=== PATIENT | female | born 1955 | race Caucasian/White ===

== ENCOUNTER 2021-01-15 15:34 | Inpatient (IN) | payer MEDICARE, OTHER ==
[~2021-01-15] VITALS: Ht 165.1 cm; Wt 69.2 kg
[~2021-01-15 15:34] MED LIST: AMIT50 PO; CITA20 PO; DEPAKOTE ER250 M2 PO; LORA10ER PO; OXYB5ER PO; RISP1 PO; RIVASTIGMINE PO; XALATAN2.5 ML BOTHEYES
[2021-01-15 17:20] LABS: BASOPHILS ABSOLUTE AUTO 0.03 K/mm3 (0.00-0.23); BASOPHILS PERCENT AUTO 0 % (0-2); EOSINOPHILS ABSOLUTE AUTO 0.03 K/mm3 (0.00-0.68); EOSINOPHILS PERCENT AUTO 0 % (0-6); Hematocrit 40.6 % (33.0-51.0); Hemoglobin 13.3 g/dL (11.5-16.0); IMMATURE GRAN ABSOLUTE AUTO 0.05 K/mm3 (0.00-0.10); IMMATURE GRAN PERCENT AUTO 0 % (0-1); LYMPHOCYTES ABSOLUTE AUTO 0.85 K/mm3 (0.84-5.20); LYMPHOCYTES PERCENT AUTO 5 % (21-46); MONOCYTES ABSOLUTE AUTO 0.89 K/mm3 (0.16-1.47); MONOCYTES PERCENT AUTO 6 % (4-13); Mean Corpuscular HGB 31.7 pg (26.0-34.0); Mean Corpuscular HGB Conc 32.8 g/dL (31.5-36.5); Mean Corpuscular Volume 97 fL (80-100); Mean Platelet Volume 9.9 fL (9.1-12.4); NEUTROPHILS ABSOLUTE AUTO 13.79 K/mm3 (1.96-9.15); NEUTROPHILS PERCENT AUTO 88 % (41-73); Platelet Count 220 K/mm3 (150-400); RDW Coefficient Variation 13.9 % (11.7-14.2); RDW Standard Deviation 49.5 fL (35.1-46.3); Red Blood Cell Count 4.19 M/mm3 (3.80-5.20); White Blood Cell Count 15.64 K/mm3 (4.00-11.30)
[2021-01-15 17:43] LABS: Albumin, Blood 3.6 g/dL (3.4-5.0); Albumin/Globulin Ratio 0.8 (0.8-1.8); Bilirubin, Total 0.4 mg/dL (0.1-1.0); Bun/Creatinine Ratio 11.5 (12.0-20.0); Calcium, Blood 9.6 mg/dL (8.5-10.1); Creatinine, Blood 1.57 mg/dL (0.40-1.00); Globulin, Blood 4.5 g/dL (2.2-4.0); Potassium, Blood 3.9 mmol/L (3.5-5.5); Total Protein, Blood 8.1 g/dL (6.4-8.2); Troponin I 0.113 ng/mL (0.000-0.040)
[2021-01-15 18:38] LABS: International Normalized Ratio 1.17; Prothrombin Time Results 12.2 Sec (9.7-11.5)
[2021-01-15 22:11] LABS: Source, Urine Clean Catch
[2021-01-15 22:15] LABS: Bilirubin, Urine Neg (Neg); Blood, Urine 2+ (Neg); Glucose Qualitative, Urine Neg (Neg); Ketones, Urine 2+ (Neg); Leukocyte Esterase, Urine 3+ (Neg); Nitrite, Urine Pos (Neg); Protein, Urine 2+ (Neg); Specific Gravity, Urine 1.025 (1.003-1.022); Urobilinogen, Urine NORM (Normal)
[2021-01-15 22:22] LABS: Appearance, Urine Hazy (Clear); Bacteria Many /hpf; Color, Urine Yellow (P-Yellow); Red Blood Cells, Urine 0-2 /hpf (0-2); Squamous Epithelial Cells Not Seen /hpf (Few); White Blood Cells, Urine TNTC /hpf (0-5)
[2021-01-15 22:44] LABS: SARS-Cov-2 (COVID-19) PCR, MMC NEGATIVE (NEGATIVE)
[2021-01-16] MEDS ORDERED: TOPI50 PO (02:37)
[2021-01-16] MEDS ORDERED: DOCUZEN 8.6-501 EACH PO (02:38)
[2021-01-16] MEDS ORDERED: CALCIUM 600 +1 EA11 PO (02:42)
--- NOTE | 2021-01-16 03:03 | NUR ---
PATIENT IS A NEW ADMIT FROM THE ED. AXOX 2 TO SELF AND LOCATION. NO DATE, MONTH, OR PRESIDENT. SLOW TO RESPOND. FOUR PERSON TRANSFER FROM [facility] TO BED. ON ROOM AIR. RIGHT SLING PRESENT ON ADMIT FOR ARM/WRIST FXS. DENIES PAIN, SOB, AND N/V. ORTHOSTATIC VITALS TAKEN ONCE PER ORDER: LAYING 112/73 HR: 78 SITTING 108/78 HR: 108 STAND 92/62 HR: 117 TELEMETRY PLACED AND TECH REPORTS SR 73. LR INFUSING AT 100mL/HR. MISSING BILATERAL GREAT TOE NAILS. REPORTS LIVES AT HOME WITH BROTHER AND [id number]. ORTHO CONSULTED IN ED AND CARDIOLOGY TO BE CONSULTED. PATIENT ORIENTED TO ROOM AND CALL LIGHT SYSTEM. BED ALARM ACITVATED. WCTM.
--- NOTE | 2021-01-16 03:28 | NUR ---
CARDIOLOGY CONSULT CALLED INTO DR CHER LEA ([facility]) ANSWERING SERVICE.
[2021-01-16 05:21] LABS: BASOPHILS ABSOLUTE AUTO 0.03 K/mm3 (0.00-0.23); BASOPHILS PERCENT AUTO 0 % (0-2); EOSINOPHILS ABSOLUTE AUTO 0.05 K/mm3 (0.00-0.68); EOSINOPHILS PERCENT AUTO 1 % (0-6); Hematocrit 34.9 % (33.0-51.0); Hemoglobin 11.5 g/dL (11.5-16.0); IMMATURE GRAN ABSOLUTE AUTO 0.01 K/mm3 (0.00-0.10); IMMATURE GRAN PERCENT AUTO 0 % (0-1); LYMPHOCYTES ABSOLUTE AUTO 1.14 K/mm3 (0.84-5.20); LYMPHOCYTES PERCENT AUTO 14 % (21-46); MONOCYTES ABSOLUTE AUTO 0.94 K/mm3 (0.16-1.47); MONOCYTES PERCENT AUTO 12 % (4-13); Mean Corpuscular HGB 31.9 pg (26.0-34.0); Mean Corpuscular Volume 97 fL (80-100); Mean Platelet Volume 10.3 fL (9.1-12.4); NEUTROPHILS ABSOLUTE AUTO 5.74 K/mm3 (1.96-9.15); NEUTROPHILS PERCENT AUTO 73 % (41-73); Platelet Count 162 K/mm3 (150-400); RDW Coefficient Variation 13.7 % (11.7-14.2); RDW Standard Deviation 49.1 fL (35.1-46.3); Red Blood Cell Count 3.61 M/mm3 (3.80-5.20); White Blood Cell Count 7.91 K/mm3 (4.00-11.30)
[2021-01-16 05:48] LABS: Bun/Creatinine Ratio 14.5 (12.0-20.0); Calcium, Blood 9.3 mg/dL (8.5-10.1); Creatinine, Blood 1.31 mg/dL (0.40-1.00); Potassium, Blood 3.4 mmol/L (3.5-5.5)
--- NOTE | 2021-01-16 06:45 | NUR ---
LAB CALLED ELEVATED TROPONIN: 1.960 UP FROM 1.[address] POWELL NOTIFIED AND REPORTS TO CONTINUE TO MONITOR. STRAP FOLDING MACHINE OPERATOR CONSULT FOR ELEVATED TROPONINS ALREADY CALLED IN FOR TODAY.
--- NOTE | 2021-01-16 15:06 | NUR ---
LEFT FOR UNHAIRING MACHINE OPERATOR AROUND 1430. SISTER-IN LAW, TOMY MCCALL, WITH HER. PATIENT DEVELOPMENTALLY DELAYED AND PER ABNER TRUONG OK FOR HER TO BE HER. PER ZOE LANG FOR TOMY TO WAIT IN WAITING ROOM FOR F/U AFTER PROCEDURE. SONIA TOOK ALL OF PATIENT CLOTHES TO BE WASHED.
--- NOTE | 2021-01-16 15:59 | NUR ---
REPORT TO JACLYN EL IN PCU.ANSWER ALL QUESTIONS.
--- NOTE | 2021-01-16 16:49 | NUR ---
Echocardiogram attempted, however there were no avaialablke images secondary to lung interference and extreeme abdominal excities.
--- NOTE | 2021-01-16 18:12 | NUR ---
SHIFT SUMMARY PT BROUGHT TO PCU-10 BY PCU BED FROM [facility] @ 5855. PT A&O TO SELF, LOCATION, & ABLE TO RELAY EVENT LEADING UP TO HOSPITALIZATION. PT REPORTS "I GOT DIZZY AND FELL." PT BEDREST POST ANGIO. VSS. SPO2 > 92% ON RA. MONITOR SHOWS SR, HR 70's. ABD FIRM & SEVERELY DISTENDED W/ NORMOACTIVE BT's. R GROIN ACCESS SITE WNL, DRESSING C/D/I, NO BLEEDING, NO HEMATOMA. R ARM IN SLING W/ BRUISING T/O R UPPER ARM. PT C/O R SHOULDER PAIN, UNABLE TO PROVIDE PAIN LEVEL OR PAIN DESCRIPTION, BUT FURTHER STATING "MY SHOULDER HURTS REAL BAD." PT MEDICATED W/ PRN IV FENTANYL PER EMAR. LR GTT INFUSING PER ORDERS. WILL CONTINUE TO MONITOR & PROVIDE CARE UNTIL REPORT OFF TO DAY SHIFT RN.
--- NOTE | 2021-01-17 01:51 | NUR ---
PATIENT BEGAN HAVING "20/10" PAIN IN FRACTURED R HUMERUS AND WRIST. MEDICATED WITH PRN TYLENOL WITH NO RELIEF. CONTACTED DOCTOR AND CHANGED Q4P TO Q2P. PATIENT REPORTS RELIEF AND WAS ABLE TO SLEEP.
[2021-01-17 04:14] LABS: BASOPHILS ABSOLUTE AUTO 0.03 K/mm3 (0.00-0.23); BASOPHILS PERCENT AUTO 0 % (0-2); EOSINOPHILS ABSOLUTE AUTO 0.02 K/mm3 (0.00-0.68); EOSINOPHILS PERCENT AUTO 0 % (0-6); Hematocrit 32.1 % (33.0-51.0); Hemoglobin 10.4 g/dL (11.5-16.0); IMMATURE GRAN ABSOLUTE AUTO 0.01 K/mm3 (0.00-0.10); IMMATURE GRAN PERCENT AUTO 0 % (0-1); LYMPHOCYTES ABSOLUTE AUTO 1.19 K/mm3 (0.84-5.20); LYMPHOCYTES PERCENT AUTO 17 % (21-46); MONOCYTES ABSOLUTE AUTO 0.89 K/mm3 (0.16-1.47); MONOCYTES PERCENT AUTO 13 % (4-13); Mean Corpuscular HGB Conc 32.4 g/dL (31.5-36.5); Mean Corpuscular Volume 96 fL (80-100); Mean Platelet Volume 10.1 fL (9.1-12.4); NEUTROPHILS ABSOLUTE AUTO 4.86 K/mm3 (1.96-9.15); NEUTROPHILS PERCENT AUTO 70 % (41-73); Platelet Count 167 K/mm3 (150-400); RDW Coefficient Variation 13.7 % (11.7-14.2); RDW Standard Deviation 48.4 fL (35.1-46.3); Red Blood Cell Count 3.35 M/mm3 (3.80-5.20)
--- NOTE | 2021-01-17 04:16 | NUR ---
PATIENT IS A/OX2 (SELF, PLACE). PLEASANT AND COOPERATIVE, ABLE TO ANSWER QUESTIONS AND STATE HER NEEDS BUT ONLY WHEN PROMPTED. R ARM AND WRIST PAIN, CAP REFILL LESS THAN 3 IN AFFECTED ARM WITH FULL SENSATION. LS CLEAR T/O AND ABOVE 90% ON RA. NSR TO ST, FAINT +1 BLE PULSES. ABDOMEN IS VERY FIRM AND DISTENDED. PATIENT REPORTS NO PAIN IN THE ABDOMEN, BUT UNABLE TO PASS FLATUS BUT BELCHES SOME. BRUISING IN AFFECTED SHOULDER. GROIN SITE C/D/I WITH NO BLEED/HEMATOMA. PATIENT DID HAVE TO BE MEDICATED TWICE DURING THE NIGHT FOR PAIN WITH PRN FENTANYL WHICH BRINGS HER RELIEF. WILL REPORT TO ONCOMING DAYSHIFT RN.
[2021-01-17 04:28] LABS: Albumin, Blood 2.9 g/dL (3.4-5.0); Anion Gap 6 mmol/L (6-16); Blood Urea Nitrogen 14 mg/dL (8-24); Bun/Creatinine Ratio 13.9 (12.0-20.0); CO2, Blood 24 mmol/L (21-32); Calcium, Blood 8.7 mg/dL (8.5-10.1); Chloride, Blood 109 mmol/L (98-108); Creatinine, Blood 1.01 mg/dL (0.40-1.00); Glomerular Filtration Rate 55 (60-); Glucose, Blood 106 mg/dL (70-99); Phosphorus, Blood 2.4 mg/dL (2.5-4.9); Potassium, Blood 3.6 mmol/L (3.5-5.5); Sodium, Blood 139 mmol/L (136-145)
[2021-01-17 08:57] LABS: CHOL/HDL RATIO 2.9; Cholesterol 174 mg/dL (50-200); HDL Cholesterol 59 mg/dL (>39); LDL/HDL RATIO 1.7; Low Density Lipoprotein Chol 99 mg/dL (0-110); Triglycerides 81 mg/dL (30-160); Very Low Density Lipoprot Chol 16 mg/dL (6-32)
--- NOTE | 2021-01-17 19:20 | NUR ---
SHIFT SUMMARY PT A&O TO SELF, LOCATION, FAMILY, & FOLLOWING INSTRUCTIONS. PT VSS. SPO2 > 92% ON RA. MONITOR SHOWING NSR. PT R ARM REMAINS IN SPLINT & SLING. PT C/O R "SHOULDER" PAIN INTERMITTENTLY T/O SHIFT, MEDICATED W/ PRN MEDICATION PER EMAR W/ RELIEF. PT ABD FIRM & SEVERELY DISTENDED W/ PT [id number] REPORT OF PT NOT HAVING BM SINCE BEGINNING OF THE MONTH. MD PERDUE TO PT BEDSIDE, MASSAGING MUSCLES ALONG PT's SPINE & PT's ABD TO PROMOTE BOWEL MOVEMENT. PT THEN W/ LARGE, LOOSE, RENE BOWEL MOVEMENT WITHIN HALF HOUR OF MD CARE.
[2021-01-18 04:00] LABS: BASOPHILS ABSOLUTE AUTO 0.04 K/mm3 (0.00-0.23); BASOPHILS PERCENT AUTO 0 % (0-2); EOSINOPHILS ABSOLUTE AUTO 0.08 K/mm3 (0.00-0.68); EOSINOPHILS PERCENT AUTO 1 % (0-6); Hematocrit 30.5 % (33.0-51.0); Hemoglobin 10.2 g/dL (11.5-16.0); IMMATURE GRAN ABSOLUTE AUTO 0.04 K/mm3 (0.00-0.10); IMMATURE GRAN PERCENT AUTO 0 % (0-1); LYMPHOCYTES ABSOLUTE AUTO 1.31 K/mm3 (0.84-5.20); LYMPHOCYTES PERCENT AUTO 11 % (21-46); MONOCYTES ABSOLUTE AUTO 1.02 K/mm3 (0.16-1.47); MONOCYTES PERCENT AUTO 9 % (4-13); Mean Corpuscular HGB 32.4 pg (26.0-34.0); Mean Corpuscular HGB Conc 33.4 g/dL (31.5-36.5); Mean Corpuscular Volume 97 fL (80-100); Mean Platelet Volume 10.4 fL (9.1-12.4); NEUTROPHILS ABSOLUTE AUTO 8.99 K/mm3 (1.96-9.15); NEUTROPHILS PERCENT AUTO 78 % (41-73); Platelet Count 172 K/mm3 (150-400); RDW Coefficient Variation 13.7 % (11.7-14.2); RDW Standard Deviation 48.7 fL (35.1-46.3); Red Blood Cell Count 3.15 M/mm3 (3.80-5.20); White Blood Cell Count 11.48 K/mm3 (4.00-11.30)
[2021-01-18 04:21] LABS: Albumin, Blood 2.9 g/dL (3.4-5.0); Albumin/Globulin Ratio 0.7 (0.8-1.8); Bilirubin, Total 0.3 mg/dL (0.1-1.0); Bun/Creatinine Ratio 21.2 (12.0-20.0); Calcium, Blood 8.6 mg/dL (8.5-10.1); Creatinine, Blood 0.99 mg/dL (0.40-1.00); Globulin, Blood 4.1 g/dL (2.2-4.0); Potassium, Blood 3.5 mmol/L (3.5-5.5)
--- NOTE | 2021-01-18 06:18 | NUR ---
SHIFT SUMMARY PT A+OX2. RESPONSIVE TO CARE. RESPONDS WITH SHORT AND SIMPLE ANSWERS. C/O OF SEVERE 10/10 PAIN IN RIGHT ARM AND HEADACHE. MANAGED PER EMAR. PAIN INCREASED DURING POSITION CHANGES. VSS. SATS RA 96%. TELE READS SR 80'S. TRANSFERRED TO CHAIR PER REQUEST AROUND 0400. LEFT IN CHAIR SLEEPING WITH CALL ALARM AT SIDE. WILL CONTINUE TO MONITOR UNTIL REPORT GIVEN
--- NOTE | 2021-01-18 07:45 | NUR ---
CARE ASSUMPTION PATIENT A/OX4. VSS. SPO2 >90% ON RA. TELE SR. PATIENT IS SITTING IN CHAIR AT BEDSIDE. PATIENT REPORTS PAIN IN RIGHT ARM, RECEIVED PAIN MEDICATION PER EMAR, AND PATIENT STATED THIS HELPED WITH THE PAIN. CALL LIGHT WITHIN REACH. WILL CONTINUE TO MONITOR AND PROVIDE CARE.
--- NOTE | 2021-01-18 11:34 | NUR ---
REPORT TO MED RN THIS RN GGAVE REPORT TO MED RN. PATIENT BELONGINGS GATHERED AND TAKEN UP WITH HER TO THE FLOOR.
--- NOTE | 2021-01-18 11:42 | NUR ---
TRANSPORT PATIENT WENT TO MEDICAL VIA WHEELCHAIR WITH ALL BELONGINGS.
--- NOTE | 2021-01-18 18:08 | NUR ---
PT PLEASANT SINCE TRANSFER TO FLOOR FROM PCU. DISCUSSED RESTARTING MENTAL HEALTH MEDS TOMORROW WITH DR BAGLEY. PT HAS TRANSFERRED TO CHAIR AND BSC WITH MINIMAL ASSIST. XRAYS TAKEN TODAY OF ARM AND REFERRAL TO DR WALTON FOR POSS SURG TOMORROW IF NEEDS. NPO AFTER MIDNITE JUST IN CASE. DR TO SEE PT TOMORROW AND DECIDE. NO OTHER CONCERNS NOTED TODAY. BED IN LOW POSITION, CALL LITE IN REACH, CALLS APPROP
--- NOTE | 2021-01-19 05:49 | NUR ---
PATIENT IS ASLEEP SITTING IN RECLINER CHAIR. PAIN HAS BEEN MANAGED PER MAR THROUGHOUT THE SHIFT, PATIENT HAS PROGRESSED WITH MAKING NEEDS KNOWN. R ARM IS IN SLING AND NO EVIDENCE OF PAIN AT THIS TIME. CALL LIGHT WITHIN REACH.
[2021-01-19 07:39] LABS: BASOPHILS ABSOLUTE AUTO 0.06 K/mm3 (0.00-0.23); BASOPHILS PERCENT AUTO 1 % (0-2); EOSINOPHILS ABSOLUTE AUTO 0.23 K/mm3 (0.00-0.68); EOSINOPHILS PERCENT AUTO 3 % (0-6); Hematocrit 29.3 % (33.0-51.0); Hemoglobin 9.6 g/dL (11.5-16.0); IMMATURE GRAN ABSOLUTE AUTO 0.03 K/mm3 (0.00-0.10); IMMATURE GRAN PERCENT AUTO 0 % (0-1); LYMPHOCYTES ABSOLUTE AUTO 1.77 K/mm3 (0.84-5.20); LYMPHOCYTES PERCENT AUTO 22 % (21-46); MONOCYTES ABSOLUTE AUTO 0.82 K/mm3 (0.16-1.47); MONOCYTES PERCENT AUTO 10 % (4-13); Mean Corpuscular HGB 31.7 pg (26.0-34.0); Mean Corpuscular HGB Conc 32.8 g/dL (31.5-36.5); Mean Corpuscular Volume 97 fL (80-100); Mean Platelet Volume 10.3 fL (9.1-12.4); NEUTROPHILS ABSOLUTE AUTO 5.12 K/mm3 (1.96-9.15); NEUTROPHILS PERCENT AUTO 64 % (41-73); Platelet Count 162 K/mm3 (150-400); RDW Coefficient Variation 13.8 % (11.7-14.2); RDW Standard Deviation 48.7 fL (35.1-46.3); Red Blood Cell Count 3.03 M/mm3 (3.80-5.20); White Blood Cell Count 8.03 K/mm3 (4.00-11.30)
[2021-01-19 08:00] LABS: Alanine Aminotransfer (ALT/SGP 23 U/L (12-78); Albumin, Blood 2.9 g/dL (3.4-5.0); Albumin/Globulin Ratio 0.7 (0.8-1.8); Alk Phos 32 U/L (50-136); Anion Gap 5 mmol/L (6-16); Aspartate Aminotrans (AST/SGOT 51 U/L (12-37); Bilirubin, Total 0.4 mg/dL (0.1-1.0); Blood Urea Nitrogen 14 mg/dL (8-24); Bun/Creatinine Ratio 16.5 (12.0-20.0); CO2, Blood 25 mmol/L (21-32); Calcium, Blood 8.6 mg/dL (8.5-10.1); Chloride, Blood 110 mmol/L (98-108); Creatinine, Blood 0.85 mg/dL (0.40-1.00); Glomerular Filtration Rate >60 (60-); Glucose, Blood 101 mg/dL (70-99); Potassium, Blood 3.2 mmol/L (3.5-5.5); Sodium, Blood 140 mmol/L (136-145); Total Protein, Blood 6.9 g/dL (6.4-8.2)
--- NOTE | 2021-01-19 16:48 | NUR ---
SHIFT SUMMARY: PT A/O TO SELF AND SITUATION. PAIN MANAGED WITH CURRENT REGIMEN AND TOLERATING PO PAIN MEDICATIONS WELL. PT UP TO BSC WITH ONE PERSON ASSIST. SHE IS STEADY ON FEET BUT NEEDS HELP WITH GETTING IN AND OUT OF BED DUE TO FRACTURED RIGHT ARM/SHOULDER. PT UNDERSTANDS TX PLAN. NO ACUTE CHANGES THIS SHIFT.
--- NOTE | 2021-01-20 04:07 | NUR ---
SUMMARY PT CONTINUES TO C/O RIGHT ARM PAIN. PT TX PER EMAR. PT REQUIRED IV FENTANYL FOR BREAKTHROUGH PAIN. PT HAS BEEN SLEEPING WELL. PT HAS BEEN VOIDING WELL AND PASSING GAS. PT CURRENTLY SLEEPING IN NO DISTRESS. CALL LIGHT IN REACH. BED ALARM ON.
[2021-01-20 04:52] LABS: BASOPHILS ABSOLUTE AUTO 0.04 K/mm3 (0.00-0.23); BASOPHILS PERCENT AUTO 1 % (0-2); EOSINOPHILS PERCENT AUTO 3 % (0-6); Hematocrit 25.9 % (33.0-51.0); Hemoglobin 8.3 g/dL (11.5-16.0); IMMATURE GRAN ABSOLUTE AUTO 0.02 K/mm3 (0.00-0.10); IMMATURE GRAN PERCENT AUTO 0 % (0-1); LYMPHOCYTES PERCENT AUTO 22 % (21-46); MONOCYTES ABSOLUTE AUTO 0.55 K/mm3 (0.16-1.47); MONOCYTES PERCENT AUTO 10 % (4-13); Mean Corpuscular Volume 100 fL (80-100); Mean Platelet Volume 10.3 fL (9.1-12.4); NEUTROPHILS ABSOLUTE AUTO 3.71 K/mm3 (1.96-9.15); NEUTROPHILS PERCENT AUTO 64 % (41-73); Platelet Count 152 K/mm3 (150-400); RDW Coefficient Variation 13.9 % (11.7-14.2); RDW Standard Deviation 49.7 fL (35.1-46.3); Red Blood Cell Count 2.59 M/mm3 (3.80-5.20); White Blood Cell Count 5.82 K/mm3 (4.00-11.30)
[2021-01-20 05:16] LABS: Alanine Aminotransfer (ALT/SGP 19 U/L (12-78); Albumin, Blood 2.3 g/dL (3.4-5.0); Albumin/Globulin Ratio 0.7 (0.8-1.8); Alk Phos 28 U/L (50-136); Anion Gap 6 mmol/L (6-16); Aspartate Aminotrans (AST/SGOT 40 U/L (12-37); Bilirubin, Total 0.4 mg/dL (0.1-1.0); Blood Urea Nitrogen 13 mg/dL (8-24); Bun/Creatinine Ratio 14.3 (12.0-20.0); CO2, Blood 23 mmol/L (21-32); Calcium, Blood 8.1 mg/dL (8.5-10.1); Chloride, Blood 115 mmol/L (98-108); Creatinine, Blood 0.91 mg/dL (0.40-1.00); Globulin, Blood 3.2 g/dL (2.2-4.0); Glomerular Filtration Rate >60 (60-); Glucose, Blood 88 mg/dL (70-99); Potassium, Blood 3.1 mmol/L (3.5-5.5); Sodium, Blood 144 mmol/L (136-145); Total Protein, Blood 5.5 g/dL (6.4-8.2)
--- NOTE | 2021-01-20 19:44 | NUR ---
SHIFT SUMMARY: PT A/O TO SELF AND AND SITUATION. ONE PERSON ASSIST TO CHAIR, BSC. PT TOLERATING PO MEDICATIONS. REPORTS PAIN TO RA. PT ABLE TO WIGGLE FINGERS AND REPORTS FEELING IN FINGERS. PT IS EATING WELL AND DRINKING FLUIDS WELL. PRUNE JUICE COCKTAIL GIVEN TODAY FOR NO BM IN 2 DAYS. REPORTED TO ONCOMING RN REGARDING LOW HGB AND TO MONITOR FOR S/S OF BLEEDING. NO OTHER ACUTE CONCERNS.
--- NOTE | 2021-01-21 05:23 | NUR ---
PT with fall & rt humerous fracture continues to require oral pain meds Percocet 5/32 mg x 2 this shift & motrin 800 mg x 1 for CO headache. PT does not use call lakhani whimpering heard & when asked PT says she needs to use BSC. Heni walker due to rt UE immobilized. Elevate RT arm above heart level to decrease edema. Fall precautions. SNF placement for rehab.
[2021-01-21 06:47] LABS: BASOPHILS ABSOLUTE AUTO 0.03 K/mm3 (0.00-0.23); BASOPHILS PERCENT AUTO 1 % (0-2); EOSINOPHILS ABSOLUTE AUTO 0.16 K/mm3 (0.00-0.68); EOSINOPHILS PERCENT AUTO 3 % (0-6); Hematocrit 26.2 % (33.0-51.0); Hemoglobin 8.6 g/dL (11.5-16.0); IMMATURE GRAN ABSOLUTE AUTO 0.01 K/mm3 (0.00-0.10); IMMATURE GRAN PERCENT AUTO 0 % (0-1); LYMPHOCYTES ABSOLUTE AUTO 1.05 K/mm3 (0.84-5.20); LYMPHOCYTES PERCENT AUTO 16 % (21-46); MONOCYTES ABSOLUTE AUTO 0.56 K/mm3 (0.16-1.47); MONOCYTES PERCENT AUTO 9 % (4-13); Mean Corpuscular HGB 32.1 pg (26.0-34.0); Mean Corpuscular HGB Conc 32.8 g/dL (31.5-36.5); Mean Corpuscular Volume 98 fL (80-100); Mean Platelet Volume 9.9 fL (9.1-12.4); NEUTROPHILS PERCENT AUTO 72 % (41-73); Platelet Count 178 K/mm3 (150-400); RDW Coefficient Variation 14.2 % (11.7-14.2); RDW Standard Deviation 49.9 fL (35.1-46.3); Red Blood Cell Count 2.68 M/mm3 (3.80-5.20); White Blood Cell Count 6.41 K/mm3 (4.00-11.30)
[2021-01-21 10:16] LABS: Anion Gap 5 mmol/L (6-16); Blood Urea Nitrogen 13 mg/dL (8-24); Bun/Creatinine Ratio 14.6 (12.0-20.0); CO2, Blood 22 mmol/L (21-32); Calcium, Blood 8.2 mg/dL (8.5-10.1); Chloride, Blood 116 mmol/L (98-108); Creatinine, Blood 0.89 mg/dL (0.40-1.00); Glomerular Filtration Rate >60 (60-); Glucose, Blood 130 mg/dL (70-99); Potassium, Blood 3.2 mmol/L (3.5-5.5); Sodium, Blood 143 mmol/L (136-145)
--- NOTE | 2021-01-21 18:36 | NUR ---
SHIFT SUMMARY: NO ACUTE EVENTS. DENIES PAIN UNLESS RUE IS MOVED; MEDICATED WITH PERCOCET X 1, WHICH MADE PT SEDATED ENOUGH THAT SHE COULD NOT STAY AWAKE FOR LUNCH. SISTER IN LAW VISITED AT DINNERTIME, SO PT AWAKE AND APPROPRIATE AT THAT TIME. WORKED WITH PT/OT LATE THIS AFTERNOON. UP TO BSC WITH 1 PERSON ASSISTANCE. RUE IS ENCASED IN SPLINT/COMPRESSION DRESSING, ARM IN SLING. CAN MOVE FINGERS, CAP REFILL < 3 SEC; EXTREMITY IS SEVERELY BRUISED FROM SHOULDER TO FINGERS, ELEVATED ABOVE HEART TO REDUCE SWELLING. SISTER IN LAW VOICED CONCERN ABOUT TAKING CARE OF PT AT HOME (HER 81 YEAR OLD IS ALSO RECOVERING FROM ARM FRACTURE AND SHE IS CARING FOR HIM). SNF VS HOME WITH HH.
--- NOTE | 2021-01-22 06:47 | NUR ---
PT much more sedate on 1 percocet 5/325 mg tab Q 4 hrs with minimum oral intake. Fed snack with meds. not OOB this shift. RT arm hand casted with decreased edema with elevation. DC planning for SNF?
[2021-01-22 10:48] LABS: SARS-Cov-2 (COVID-19) PCR, MMC NEGATIVE (NEGATIVE)
[2021-01-22] MEDS ORDERED: ATOR10 PO (13:46)
[2021-01-22] MEDS ORDERED: METO25 PO (13:46)
[2021-01-22] MEDS ORDERED: TRAM50 PO (13:46)
[2021-01-22] MEDS ORDERED: ACET325 PO (13:46)
--- NOTE | 2021-01-22 16:14 | NUR ---
TELEPHONE REPORT GIVEN TO BRANDON AT [facility]. PT TO BE D/C'D AT ~ 1630.
--- NOTE | 2021-01-22 16:56 | NUR ---
PATIENT DISCHARGED TO [facility] VIA W/C. IV SALINE LOCK REMOVED WITHOUT INCIDENT. TRANSFERRED TO W/C WITH 1 PERSON ASSIST. OFF UNIT AT 1657. NO PERSONAL BELONGINGS LEFT BEHIND IN ROOM.
== END 2021-01-22 17:00 | DRG 872 ==
LOC: ER 15:34 → MEDS 21:54 → PCU 01-16 15:41 → MEDS 01-18 11:51
PROVIDERS: Hospitalist; Physician Assistant; Student in an Organized Health Care Education/Training Program; ADMIT Family Medicine
PROC: 0PSHXZZ Reposition Right Radius, External Approach (ICD-10-PCS; principal; 2021-01-15)
PROC: 0PSCXZZ Reposition Right Humeral Head, External Approach (ICD-10-PCS; 2021-01-15)
PROC: 4A023N7 Measurement of Cardiac Sampling and Pressure, Left Heart, Percutaneous Approach (ICD-10-PCS; 2021-01-16)
PROC: B2111ZZ Fluoroscopy of Multiple Coronary Arteries using Low Osmolar Contrast (ICD-10-PCS; 2021-01-16)
DX: A41.51 Sepsis due to Escherichia coli [E. coli] (principal); S42.291A Other displaced fracture of upper end of right humerus, initial encounter for closed fracture; S52.531A Colles' fracture of right radius, initial encounter for closed fracture; N17.9 Acute kidney failure, unspecified; N39.0 Urinary tract infection, site not specified; I24.8 Other forms of acute ischemic heart disease; K56.0 Paralytic ileus; E87.2 Acidosis; K59.09 Other constipation; R65.20 Severe sepsis without septic shock; Z20.822 Contact with and (suspected) exposure to COVID-19; T44.1X5A Adverse effect of other parasympathomimetics [cholinergics], initial encounter; R62.50 Unspecified lack of expected normal physiological development in childhood; E87.6 Hypokalemia; W18.30XA Fall on same level, unspecified, initial encounter; Z88.5 Allergy status to narcotic agent; Z88.6 Allergy status to analgesic agent; Z88.8 Allergy status to other drugs, medicaments and biological substances; Z79.899 Other long term (current) drug therapy
CPT/HCPCS: 25605; 36415; 71045; 73030; 73060; 73100; 73110; 74176; 80048; 80053; 80061; 80069; 81001; 82550; 82947; 83605; 83735; 84132; 84145; 84484; 85025; 85610; 85730; 87040; 87077; 87086; 87186; 93005; 93010; 93306; 93458; 96365-59; 96375-59; 96376-59; 97110; 97116; 97162; 97166; 97530; 97535; 99152; 99153; 99285-25; A9270; C1760; C1769; C1894; J0696; J1170; J1644; J2250; J2543; J3010; J3370; J3480; J7030; J7050; J7120; P9612; Q9967; U0004

== ENCOUNTER → 2021-01-27 | Outpatient (CLI) | payer MEDICARE, OTHER ==
[~2021-01-27] MED LIST changes: +ACET325 PO; +ATOR10 PO; +CALCIUM 600 +1 EA11 PO; +DOCUZEN 8.6-501 EACH PO; +METO25 PO; +TOPI50 PO; +TRAM50 PO
[2021-01-27 18:26] LABS: Hematocrit 28.8 % (33.0-51.0); Hemoglobin 9.2 g/dL (11.5-16.0); Mean Corpuscular HGB 31.6 pg (26.0-34.0); Mean Corpuscular HGB Conc 31.9 g/dL (31.5-36.5); Mean Corpuscular Volume 99 fL (80-100); Mean Platelet Volume 9.7 fL (9.1-12.4); Platelet Count 203 K/mm3 (150-400); RDW Coefficient Variation 15.2 % (11.7-14.2); RDW Standard Deviation 53.9 fL (35.1-46.3); Red Blood Cell Count 2.91 M/mm3 (3.80-5.20); White Blood Cell Count 6.06 K/mm3 (4.00-11.30)
[2021-01-27 18:33] LABS: Anion Gap 7 mmol/L (6-16); Blood Urea Nitrogen 25 mg/dL (8-24); Bun/Creatinine Ratio 27.4 (12.0-20.0); CO2, Blood 23 mmol/L (21-32); Calcium, Blood 8.8 mg/dL (8.5-10.1); Chloride, Blood 109 mmol/L (98-108); Creatinine, Blood 0.91 mg/dL (0.40-1.00); Glomerular Filtration Rate >60 (60-); Glucose, Blood 103 mg/dL (70-99); Potassium, Blood 3.5 mmol/L (3.5-5.5); Sodium, Blood 139 mmol/L (136-145)
== END | disposition home or self-care (01) ==
LOC: EDSTATUS 10:29 → LAB RH 16:23
PROVIDERS: Internal Medicine
DX: R68.89 Other general symptoms and signs (principal); R79.89 Other specified abnormal findings of blood chemistry
CPT/HCPCS: 80048; 85027

== ENCOUNTER → 2021-04-21 | Outpatient (CLI) | payer MEDICARE, OTHER | END | disposition home or self-care (01) | LOC: LAB SHORT 14:56 | DX: R35.0 Frequency of micturition (principal) | CPT/HCPCS: 87077; 87086; 87186 ==

== ENCOUNTER → 2021-05-16 | Outpatient (CLI) | payer MEDICARE, OTHER | LOC: LAB 19:09 → LAB SHORT 19:09 | DX: R30.0 Dysuria (principal) | CPT/HCPCS: 87077; 87086; 87186 ==

== ENCOUNTER → 2021-10-19 | Outpatient (CLI) | payer MEDICARE, OTHER | END | disposition home or self-care (01) | LOC: LAB SHORT 10:45 → LAB 10:45 | DX: N39.0 Urinary tract infection, site not specified (principal) | CPT/HCPCS: 87077; 87086; 87186 ==

== ENCOUNTER 2022-04-23 07:28 | Emergency (ER) | payer OTHER, MEDICARE ==
[~2022-04-23] VITALS: Ht 165.1 cm; Wt 72.6 kg
== END 2022-04-23 11:48 | disposition home or self-care (01) ==
LOC: ER 07:28
DX: S00.83XA Contusion of other part of head, initial encounter (principal); M54.50 Low back pain, unspecified; W01.0XXA Fall on same level from slipping, tripping and stumbling without subsequent striking against object, initial encounter; Z88.8 Allergy status to other drugs, medicaments and biological substances; Z88.5 Allergy status to narcotic agent; Z88.6 Allergy status to analgesic agent; Z79.899 Other long term (current) drug therapy
CPT/HCPCS: 70450; 72125; 74176; A9270

== ENCOUNTER 2022-08-30 11:02 | Inpatient (IN) | payer OTHER, MEDICARE ==
[~2022-08-30] VITALS: Ht 165.1 cm; Wt 81.7 kg
[2022-08-30 11:52] LABS: BASOPHILS ABSOLUTE AUTO 0.04 K/mm3 (0.00-0.23); BASOPHILS PERCENT AUTO 1 % (0-2); EOSINOPHILS ABSOLUTE AUTO 0.14 K/mm3 (0.00-0.68); EOSINOPHILS PERCENT AUTO 3 % (0-6); Hematocrit 33.3 % (33.0-51.0); Hemoglobin 10.9 g/dL (11.5-16.0); IMMATURE GRAN ABSOLUTE AUTO 0.02 K/mm3 (0.00-0.10); IMMATURE GRAN PERCENT AUTO 1 % (0-1); LYMPHOCYTES ABSOLUTE AUTO 0.85 K/mm3 (0.84-5.20); LYMPHOCYTES PERCENT AUTO 20 % (21-46); MONOCYTES ABSOLUTE AUTO 0.35 K/mm3 (0.16-1.47); MONOCYTES PERCENT AUTO 8 % (4-13); Mean Corpuscular HGB 31.6 pg (26.0-34.0); Mean Corpuscular HGB Conc 32.7 g/dL (31.5-36.5); Mean Corpuscular Volume 97 fL (80-100); Mean Platelet Volume 9.8 fL (9.1-12.4); NEUTROPHILS ABSOLUTE AUTO 2.96 K/mm3 (1.96-9.15); NEUTROPHILS PERCENT AUTO 68 % (41-73); Platelet Count 145 K/mm3 (150-400); RDW Coefficient Variation 13.8 % (11.7-14.2); Red Blood Cell Count 3.45 M/mm3 (3.80-5.20); White Blood Cell Count 4.36 K/mm3 (4.00-11.30)
[2022-08-30 12:08] LABS: Albumin, Blood 2.9 g/dL (3.4-5.0); Albumin/Globulin Ratio 0.9 (0.8-1.8); Bilirubin, Total 0.3 mg/dL (0.1-1.0); Bun/Creatinine Ratio 16.8 (12.0-20.0); Calcium, Blood 8.8 mg/dL (8.5-10.1); Creatinine, Blood 1.25 mg/dL (0.40-1.00); Globulin, Blood 3.3 g/dL (2.2-4.0); Magnesium, Blood 1.9 mg/dL (1.6-2.4); Potassium, Blood 3.9 mmol/L (3.5-5.5); Thyroid Stimulating Hormone 3.05 uIU/mL (0.360-4.800); Total Protein, Blood 6.2 g/dL (6.4-8.2)
--- NOTE | 2022-08-30 15:30 | NUR ---
ARRIVAL TO UNIT PT TRANSPORTED FROM ER VIA GURNEY. TRANSFERRED OVER TO BED WITH SLIDE SHEET. COMPLAINS ON PAIN WHEN MOVING BUT HAS NO PAIN WHEN LYING IN BED. PT ABLE TO RESPOND TO YES NO QUESTIONS, DOESNT GIVE MORE DETAIL. EXPLAINED TO PT WHAT THE CALL LIGHT WHAT AND HOW TO USE IT IF SHE NEEDED SOMETHING. B/P IN THE 70'S OVER 60'S. PT STABLE AND WANTING TO SLEEP. WILL CONTINUE TO MONITOR BP.
[2022-08-30 16:37] VITALS: BP 80/58
--- NOTE | 2022-08-30 17:00 | NUR ---
POA CONTACT INFO LEORA DICKSON WILL COME IN WITH MEDICATION LIST LATER AURE
--- NOTE | 2022-08-30 17:43 | NUR ---
SHIFT SUMMARY PT ABLE TO LET THE STAFF KNOW WHEN SHE HAS TO USE THE BATHROOM. PT USES BEDPAN, ABLE TO LIFT UP ONE HIP TO GET THE BEDPAN UNDER. ONLY COMPLAINS OF PAIN WHEN MOVED. B/P STILL LOW BUT THIS IS NORMAL FOR PT. EATING DINNER NOW, WILL BE NPO @ MIDNIGHT FOR POSSIBLE SURGERY TOMORROW. POA WILL BE IN TONIGHT WITH MEDICATION LIST. NO QUESTIONS AT THIS TIME.
[2022-08-30] MEDS ORDERED: NAPR500 PO (19:44)
[2022-08-30] MEDS ORDERED: MIRALAX17 GM PO (19:45)
[2022-08-30] MEDS ORDERED: SUMA25 PO (19:46)
[2022-08-30] MEDS ORDERED: AMIT50 PO (19:47)
[2022-08-30 19:50] VITALS: BP 102/80
[2022-08-31] VITALS (22 sets, daily range): BP systolic 76–111; BP diastolic 51–99
--- NOTE | 2022-08-31 04:03 | NUR ---
PHYSICIAN COMMUNICATION ROUGHLY AROUND [address] LIVINGSTON OF LOW BP. 79/58, WHEN RECHECKED 71/54 & MAP 61. DR LIVINGSTON ORDERED 1L BOLUS NS & INCREASED CONTINUOUS NS RATE TO 150/HR. WILL RECHECK VITALS & MONITOR.
--- NOTE | 2022-08-31 05:18 | NUR ---
SHIFT SUMMARY BP NOTED TO BE HYPOTENSIVE STILL, 81/61. SEE PREVIOUS NOTE FOR PHYSICIAN COMMUNICATION. PT APPEARS TO REMAIN ASYMPTOMATIC, BUT PT REPORTS SHE OFTEN FALLS AND "BREAKS SOMETHING" WHEN HER BP IS THIS LOW. PT MEDICATED FOR PAIN ONCE WITH GOOD RESULTS. PT HAS NOT VOIDED YET, BLADDER SCAN WAS <400 AND PT REPORTS NO URGE TO VOID. PLAN TO BLADDER SCAN AND ATTEMPT TO VOID BEFORE THE END OF SHIFT. PT HAS BEEN NPO SINCE 0000 IN ANTICIPATION FOR SURGERY THIS AM. SENSATION AND CIRCULATION REMAINS INTACT IN LLE. NO FURTHER EVENTS NOTED. THE PATIENT IS CURRENTLY SLEEPING, CALL LIGHT IN REACH
[2022-08-31 06:15] LABS: Hematocrit 24.7 % (33.0-51.0); Mean Corpuscular HGB 31.7 pg (26.0-34.0); Mean Corpuscular HGB Conc 32.4 g/dL (31.5-36.5); Mean Corpuscular Volume 98 fL (80-100); Mean Platelet Volume 10.2 fL (9.1-12.4); Platelet Count 113 K/mm3 (150-400); Red Blood Cell Count 2.52 M/mm3 (3.80-5.20); White Blood Cell Count 4.64 K/mm3 (4.00-11.30)
--- NOTE | 2022-08-31 06:19 | NUR ---
POA THE PATIENT STATED THAT HER BROTHER RAUDEL IS HER POA AND THAT HE MAKES HER MEDICAL DECISIONS.
[2022-08-31 06:43] LABS: Bun/Creatinine Ratio 21.7 (12.0-20.0); Calcium, Blood 7.6 mg/dL (8.5-10.1); Creatinine, Blood 0.97 mg/dL (0.40-1.00); Percent Saturation 16.5 % (15.0-50.0); Potassium, Blood 3.9 mmol/L (3.5-5.5)
--- NOTE | 2022-08-31 11:16 | NUR ---
PER CAREGIVER; PT SIGNS ALL OWN LEGAL DOCUMENTS. CAREGIVER ASKS THAT THEY BE NOTIFIED PRIOR TO ANY PROCEDURES, WHETHER IT IS THE CAREGIVER OR THE PATIENT'S SISTER IN LAW (BROTHER LISTED ON NEXT OF KIN)
--- NOTE | 2022-08-31 14:45 | NUR ---
PT TO OR.
--- NOTE | 2022-08-31 14:46 | NUR ---
PT TAKEN TO SURGERY, DISCONNECTED FROM IV FLUIDS.
--- NOTE | 2022-08-31 18:18 | NUR ---
PT ARRIVED BACK TO ROOM FROM PACU DRESSINGS X3 TO LLE CDI. PT A&O. DENIES PAIN OR N/V. VSS. CALL LIGHT IN REACH. PLACED BED ALARM ON FOR SAFETY.
--- NOTE | 2022-08-31 18:36 | NUR ---
PT ARRIVED FROM PACU, 3 INCISIONS ON LLE, DRESSINGS ARE C/D/I. PT DENIES N/V AND PAIN. LYING IN BED, CALL LIGHT IN REACH.
[2022-08-31 18:48] LABS: Hematocrit 22.8 % (33.0-51.0); Hemoglobin 7.2 g/dL (11.5-16.0)
--- NOTE | 2022-08-31 19:26 | NUR ---
PT'S SBP DROPPED TO 70S AND 02 SATS DIFFICULT TO OBTAIN. NOTIFIED DR JONES OF THIS AND H&H RESULTS. ORDERS OBTAINED FOR 1 UNIT PRBCS, 1L NS WO, AND TELE. IF VS DO NOT IMPROVE AFTER PRBCS, TRANSFER TO PCU. NS INFUSING AT THIS TIME. BEDSIDE REPORT GIVEN TO ONCOMING SHIFT.
[2022-09-01] VITALS (9 sets, daily range): BP systolic 84–97; BP diastolic 55–70
[2022-09-01 02:38] LABS: BASOPHILS ABSOLUTE AUTO 0.02 K/mm3 (0.00-0.23); BASOPHILS PERCENT AUTO 0 % (0-2); EOSINOPHILS ABSOLUTE AUTO 0.01 K/mm3 (0.00-0.68); EOSINOPHILS PERCENT AUTO 0 % (0-6); Hematocrit 22.2 % (33.0-51.0); Hemoglobin 7.4 g/dL (11.5-16.0); IMMATURE GRAN ABSOLUTE AUTO 0.02 K/mm3 (0.00-0.10); IMMATURE GRAN PERCENT AUTO 0 % (0-1); LYMPHOCYTES ABSOLUTE AUTO 0.58 K/mm3 (0.84-5.20); LYMPHOCYTES PERCENT AUTO 9 % (21-46); MONOCYTES ABSOLUTE AUTO 0.64 K/mm3 (0.16-1.47); MONOCYTES PERCENT AUTO 10 % (4-13); Mean Corpuscular HGB 32.3 pg (26.0-34.0); Mean Corpuscular HGB Conc 33.3 g/dL (31.5-36.5); Mean Corpuscular Volume 97 fL (80-100); Mean Platelet Volume 10.5 fL (9.1-12.4); NEUTROPHILS ABSOLUTE AUTO 5.43 K/mm3 (1.96-9.15); NEUTROPHILS PERCENT AUTO 81 % (41-73); Platelet Count 91 K/mm3 (150-400); RDW Coefficient Variation 14.5 % (11.7-14.2); RDW Standard Deviation 51.4 fL (35.1-46.3); Red Blood Cell Count 2.29 M/mm3 (3.80-5.20)
[2022-09-01 02:57] LABS: Bun/Creatinine Ratio 20.9 (12.0-20.0); Creatinine, Blood 0.96 mg/dL (0.40-1.00); Potassium, Blood 3.9 mmol/L (3.5-5.5)
--- NOTE | 2022-09-01 03:03 | NUR ---
PLACED CALL TO DR LIVINGSTON ABOUT PATIENTS LOW BLOOD PRESSURES, UPDATED W/ NEW H&H, DR. LIVINGSTON GAVE ORDERS TO INCREASE NS TO 150/HR FOR MAINTANANCE FLUID. PT ASYMTOMATIC AT THIS TIME.
--- NOTE | 2022-09-01 05:05 | NUR ---
SHIFT SUMMARY A/O X3-4. POD1 LLE FIXATION, GAUZE AND FOAM TAPE C/D/I. NO REPORT OF PAIN THROUGHOUT SHIFT. ONE UNIT OF PRBCS GIVEN AND MAINTANANCE FLUIDS RUNNING. PLEASANT AND COOPERATIVE W/ CARE. VOIDING AND TOLERATING PO INTAKE. BEDREST THROUGHOUT SHIFT. WILL REPORT TO ONCOMING RN.
--- NOTE | 2022-09-01 09:02 | NUR ---
09/01/22 0902 Silvana Case VERIFICATIONS: EDIT CHART.
[2022-09-01 13:54] LABS: Hematocrit 23.6 % (33.0-51.0); Hemoglobin 7.7 g/dL (11.5-16.0)
--- NOTE | 2022-09-01 16:46 | NUR ---
AQUACEL DRESSING APPLIED
[2022-09-01 16:49] LABS: Source, Urine Foley catheter
[2022-09-01 16:59] LABS: Appearance, Urine Clear (Clear); Bilirubin, Urine Neg (Neg); Blood, Urine 1+ (Neg); Color, Urine Yellow (P-Yellow); Glucose Qualitative, Urine 2+ (Neg); Ketones, Urine Neg (Neg); Leukocyte Esterase, Urine 1+ (Neg); Nitrite, Urine Neg (Neg); Protein, Urine 1+ (Neg); Urobilinogen, Urine NORM (Normal)
[2022-09-01 17:08] LABS: Bacteria Mod /hpf; Red Blood Cells, Urine 0-2 /hpf (0-2); Squamous Epithelial Cells Rare /hpf (Few)
--- NOTE | 2022-09-01 18:01 | NUR ---
SHIFT SUMMARY PT A&OX4, VSS/RA, GIOVANA PO, VOIDING, 1 PP MOD ASSIST/UP TO CHAIR & BSC, PAIN MANAGED WITH TYLENOL. POD1 LLE GAMMA NAIL, AQUACEL APPLIED TODAY - CDI. PT AND OT WORKED WITH PATIENT TODAY. WILL REPORT TO ONCOMING NOC RN.
[2022-09-02 06:08] VITALS: BP 120/80
[2022-09-02 08:13] VITALS: BP 112/87
[2022-09-02 09:19] LABS: BASOPHILS ABSOLUTE AUTO 0.04 K/mm3 (0.00-0.23); BASOPHILS PERCENT AUTO 0 % (0-2); EOSINOPHILS ABSOLUTE AUTO 0.15 K/mm3 (0.00-0.68); EOSINOPHILS PERCENT AUTO 2 % (0-6); Hemoglobin 7.6 g/dL (11.5-16.0); IMMATURE GRAN ABSOLUTE AUTO 0.03 K/mm3 (0.00-0.10); IMMATURE GRAN PERCENT AUTO 0 % (0-1); LYMPHOCYTES ABSOLUTE AUTO 1.02 K/mm3 (0.84-5.20); LYMPHOCYTES PERCENT AUTO 11 % (21-46); MONOCYTES ABSOLUTE AUTO 1.05 K/mm3 (0.16-1.47); MONOCYTES PERCENT AUTO 12 % (4-13); Mean Corpuscular HGB 32.1 pg (26.0-34.0); Mean Corpuscular Volume 97 fL (80-100); Mean Platelet Volume 10.9 fL (9.1-12.4); NEUTROPHILS ABSOLUTE AUTO 6.81 K/mm3 (1.96-9.15); NEUTROPHILS PERCENT AUTO 75 % (41-73); Platelet Count 103 K/mm3 (150-400); RDW Standard Deviation 53.1 fL (35.1-46.3); Red Blood Cell Count 2.37 M/mm3 (3.80-5.20)
[2022-09-02 11:17] LABS: Bun/Creatinine Ratio 24.2 (12.0-20.0); Calcium, Blood 7.8 mg/dL (8.5-10.1); Creatinine, Blood 0.83 mg/dL (0.40-1.00); Potassium, Blood 4.4 mmol/L (3.5-5.5)
[2022-09-02 12:13] LABS: SARS-Cov-2 (COVID-19) PCR, MMC NEGATIVE (NEGATIVE)
[2022-09-02 14:49] VITALS: BP 105/75
--- NOTE | 2022-09-02 15:11 | NUR ---
DISCHARGE NOTE: PATIENT IS GOING TO [facility] TODAY. THIS NURSE SPOKE WITH MAURICIO EL AT [facility] AND GAVE REPORT. AFTER REPORT MAURICIO EL HAD NO FURTHER QUESTIONS AT THIS TIME. PAIN IS MANAGED WITH ORAL PAIN MEDICATIONS. HARD PERSCRIPTION IS IN THE FOLDER FOR TRANSPORT. HER 3 AQUACELS ON THE LEFT HIP ARE C/D/I. DENIES NUMBNESS OR TINGLING. SHE IS A 2 PERSON MODERATE ASSIST WITH FWW AND GAIT BELT. PATIENT IS DRESSED AND HAS PERSONAL ITEMS IN THE ROOM GATHERED. SHE IS TOLERATING PO INTAKE AND IS VOIDING/HAD A BM THIS MORNING. AWAITING FOR TRANSPORT TO COME AND PICK HER UP TO TAKE [facility].
--- NOTE | 2022-09-02 15:51 | NUR ---
TRANSPORT JUST PICKED UP NANI. PERSONAL ITEMS IN THE ROOM ARE GATHERED. PATIENT IS BEING WHEELCHAIRED OUT WITH TRANSPORT AND IS TAKING [facility] TO [facility].
== END 2022-09-02 15:51 | disposition home or self-care (01) | DRG 481 ==
LOC: ER 11:02 → SURS 13:23 → MEDS 13:23 → SURS 14:55
PROVIDERS: Internal Medicine; Student in an Organized Health Care Education/Training Program; ADMIT Internal Medicine
PROC: 0T9B70Z Drainage of Bladder with Drainage Device, Via Natural or Artificial Opening (ICD-10-PCS; 2022-08-31)
PROC: 0QS736Z Reposition Left Upper Femur with Intramedullary Internal Fixation Device, Percutaneous Approach (ICD-10-PCS; 2022-08-31)
PROC: 30233N1 Transfusion of Nonautologous Red Blood Cells into Peripheral Vein, Percutaneous Approach (ICD-10-PCS; principal; 2022-09-01)
DX: S72.142A Displaced intertrochanteric fracture of left femur, initial encounter for closed fracture (principal); F84.9 Pervasive developmental disorder, unspecified; K56.699 Other intestinal obstruction unspecified as to partial versus complete obstruction; S72.302A Unspecified fracture of shaft of left femur, initial encounter for closed fracture; Z20.822 Contact with and (suspected) exposure to COVID-19; F32.A Depression, unspecified; D63.8 Anemia in other chronic diseases classified elsewhere; F41.9 Anxiety disorder, unspecified; H40.9 Unspecified glaucoma; Z87.81 Personal history of (healed) traumatic fracture; I25.2 Old myocardial infarction; J45.909 Unspecified asthma, uncomplicated; K21.9 Gastro-esophageal reflux disease without esophagitis; Z87.01 Personal history of pneumonia (recurrent); I10 Essential (primary) hypertension; I95.9 Hypotension, unspecified; Z88.6 Allergy status to analgesic agent; Z88.8 Allergy status to other drugs, medicaments and biological substances; Z98.890 Other specified postprocedural states; Z87.891 Personal history of nicotine dependence; Z79.899 Other long term (current) drug therapy; W01.198A Fall on same level from slipping, tripping and stumbling with subsequent striking against other object, initial encounter; Y92.22 Religious institution as the place of occurrence of the external cause
CPT/HCPCS: 36415; 71045; 73502; 80048; 80053; 81001; 82330; 82533; 82728; 82947; 83540; 83550; 83605; 83735; 84443; 84484; 85014; 85018; 85025; 85027; 86850; 86900; 86901; 86923; 87086; 93005; 93010; 96361; 96374; 97110; 97162; 97166; 97530; 97535; 99285-25; A9270; C1713; C1769; J0690; J1100; J1885; J2370; J2405; J2704; J3010; J7030; J7060; J7120; P9016; U0002

== ENCOUNTER 2022-09-03 18:53 | Inpatient (IN) | payer MEDICARE, OTHER ==
[~2022-09-03] VITALS: Ht 167.6 cm; Wt 59.0 kg
[~2022-09-03 18:53] MED LIST changes: +MIRALAX17 GM PO; +NAPR500 PO; +SUMA25 PO
[2022-09-03 19:11] LABS: BASOPHILS ABSOLUTE AUTO 0.01 K/mm3 (0.00-0.23); BASOPHILS PERCENT AUTO 0 % (0-2); EOSINOPHILS ABSOLUTE AUTO 0.01 K/mm3 (0.00-0.68); EOSINOPHILS PERCENT AUTO 0 % (0-6); Hemoglobin 8.3 g/dL (11.5-16.0); IMMATURE GRAN ABSOLUTE AUTO 0.09 K/mm3 (0.00-0.10); IMMATURE GRAN PERCENT AUTO 1 % (0-1); LYMPHOCYTES ABSOLUTE AUTO 0.55 K/mm3 (0.84-5.20); LYMPHOCYTES PERCENT AUTO 7 % (21-46); MONOCYTES ABSOLUTE AUTO 0.35 K/mm3 (0.16-1.47); MONOCYTES PERCENT AUTO 4 % (4-13); Mean Corpuscular HGB 31.9 pg (26.0-34.0); Mean Corpuscular HGB Conc 30.7 g/dL (31.5-36.5); Mean Platelet Volume 10.7 fL (9.1-12.4); NEUTROPHILS ABSOLUTE AUTO 6.89 K/mm3 (1.96-9.15); NEUTROPHILS PERCENT AUTO 87 % (41-73); NRBC ABSOLUTE 0.02 K/mm3 (0.00-0.02); NRBC Auto 0.3 /100 WBC (0.0-0.2); Platelet Count 176 K/mm3 (150-400)
[2022-09-03 19:19] LABS: Mean Corpuscular Volume 104 fL (80-100)
[2022-09-03 19:24] LABS: Albumin/Globulin Ratio 0.8 (0.8-1.8); Bun/Creatinine Ratio 24.1 (12.0-20.0); Calcium, Blood 8.8 mg/dL (8.5-10.1); Creatinine, Blood 1.37 mg/dL (0.40-1.00); Globulin, Blood 3.9 g/dL (2.2-4.0); Potassium, Blood 5.2 mmol/L (3.5-5.5); Total Protein, Blood 6.9 g/dL (6.4-8.2)
[2022-09-03 19:59] LABS: International Normalized Ratio 1.23; Prothrombin Time Results 12.8 Sec (9.7-11.5)
[2022-09-03 21:25] LABS: Base Excess Venous -17.9 mmol/L; Bicarbonate Venous 11.2 mmol/L (24.0-30.0); PCO2 Venous 59.1 mmHg (38-42)
[2022-09-03 21:26] LABS: pH Blood Venous 6.97 (7.34-7.37)
[2022-09-03 23:46] LABS: Bun/Creatinine Ratio 22.6 (12.0-20.0); Calcium, Blood 7.9 mg/dL (8.5-10.1); Creatinine, Blood 1.33 mg/dL (0.40-1.00); Potassium, Blood 5.5 mmol/L (3.5-5.5)
[2022-09-04 01:07] VITALS: BP 64/49
[2022-09-04 01:15] VITALS: BP 65/50
--- NOTE | 2022-09-04 01:16 | NUR ---
ARRIVAL TO ICU PT ARRIVED TO ICU VIA ED BED AND TRANSFERED OVER VIA SLIDE SHEET. SHE IS NOW A DNR AND WE ARE WAITING FOR A FAMILY MEMBER TO ARRIVE BEFORE STOPPING LEVOPHED. LEVO INFUSING AT 15MCG/MIN AND QUICKLY TITRATED UP TO 20MCG/MIN; SBP 60'S, MAP 50'S. SHE IS MINIMALLY RESPONSIVE, HAS ANSWERED A FEW SIMPLE Y/N QUESTIONS WITH HEAD NODS. ON 2L NC. ABD PROFOUNDLY DISTENDED. ARMAS IN PLACE WITH NO URINE OUTPUT. BLE MOTTLED, OVERALL PALE. BICARB INFUSING AT 125ML/HR. WILL CONT TO MONITOR.
[2022-09-04 01:30] VITALS: BP 67/50
[2022-09-04 01:45] VITALS: BP 69/47
[2022-09-04 02:00] VITALS: BP 71/48
--- NOTE | 2022-09-04 02:05 | NUR ---
UPDATE CALL MADE TO DR ROBERT ASKING WHICH FAMILY MEMBER WE WERE WAITING ON. HE SAID THAT THE ONLY PERSON HE TALKED TO WAS THE PATIENTS BROTHER RAUDEL AND IT WAS UNSURE IF HE WAS GOING TO COME INTO THE HOSPITAL. CALL THEN MADE TO RAUDEL WHO INFORMED THIS NURSE THAT HE WOULD NOT BE COMING IN BECAUSE THIS WAS "TOO HARD TO WATCH"; EMPATHY SHOWED TOWARDS BROTHER. CLARIFICATION MADE REGARDING TURING OFF THE SUPPORTIVE MEDICATION; HE AGREED TO HAVE THE MEDICATION TURNED OFF. LEVOPHED AND BICARB STOPPED AT 0200. PT COMFORTABLE IN BED, SHALLOW SLOW BREATHS NOTED. WILL CONT TO MONITOR.
--- NOTE | 2022-09-04 04:07 | NUR ---
UPDATE CALL MADE TO DR REYNAGA REGARDING AIR HUNGER AND RESTLESSNESS; PT HAS AN ALLERGY TO MORPHINE. NEW ORDERS PROVIDED FOR PRN DILAUDID.
--- NOTE | 2022-09-04 06:06 | NUR ---
END OF SHIFT SUMMARY PT HAS BEEN SHOWING SIGNS OF AIR HUNGER; DR REYNAGA NOTIFIED AND PROVIDED ORDER FOR PRN DILAUDID; PRN GIVEN AND HELPFUL FOR AIR HUNGER. SHE IS NOT RESPONSIVE TO VERBAL STIMULI SINCE LEVOPHED TURNED OFF. MOTTLING NOTED T/O ENTIRE BLE'S. ARMAS REMOVED D/T NO URINE OUTPUT. ORAL RENE FROTH NOTED AT TIMES AND SUCTIONED. WILL REPORT TO AM RN WHEN AVAILABLE.
== END 2022-09-04 08:42 | DRG 871 ==
LOC: ER 18:53 → ICUW 23:09
PROVIDERS: Student in an Organized Health Care Education/Training Program; ADMIT Internal Medicine
PROC: 3E033XZ Introduction of Vasopressor into Peripheral Vein, Percutaneous Approach (ICD-10-PCS; principal; 2022-09-03)
PROC: 0T9B70Z Drainage of Bladder with Drainage Device, Via Natural or Artificial Opening (ICD-10-PCS; 2022-09-03)
PROC: 3E03329 Introduction of Other Anti-infective into Peripheral Vein, Percutaneous Approach (ICD-10-PCS; 2022-09-03)
PROC: 30233N1 Transfusion of Nonautologous Red Blood Cells into Peripheral Vein, Percutaneous Approach (ICD-10-PCS; 2022-09-03)
DX: A41.9 Sepsis, unspecified organism (principal); G93.41 Metabolic encephalopathy; R65.21 Severe sepsis with septic shock; N17.9 Acute kidney failure, unspecified; T79.A3XA Traumatic compartment syndrome of abdomen, initial encounter; E87.20 Acidosis, unspecified; G81.91 Hemiplegia, unspecified affecting right dominant side; Z66 Do not resuscitate; Z51.5 Encounter for palliative care; H40.9 Unspecified glaucoma; K59.81 Ogilvie syndrome; F32.A Depression, unspecified; D63.8 Anemia in other chronic diseases classified elsewhere; S72.002D Fracture of unspecified part of neck of left femur, subsequent encounter for closed fracture with routine healing; S42.301D Unspecified fracture of shaft of humerus, right arm, subsequent encounter for fracture with routine healing; F41.9 Anxiety disorder, unspecified; I95.9 Hypotension, unspecified; Z88.6 Allergy status to analgesic agent; Z88.8 Allergy status to other drugs, medicaments and biological substances; Z98.890 Other specified postprocedural states; Z87.81 Personal history of (healed) traumatic fracture; Z79.899 Other long term (current) drug therapy; W18.39XD Other fall on same level, subsequent encounter
CPT/HCPCS: 36415; 51702; 70496; 70498; 71045; 74177; 80048; 80053; 82803; 82947; 83605; 83735; 83880; 85025; 85610; 86850; 86900; 86901; 87040; 93005; 93010; 96361-59; 96365-59; 96366-59; 96368; 96375-59; 96376-59; 99291-25; J0330; J0692; J1170; J2370; J2704; J3010; J7030; J7060; Q9967